=== PATIENT | male | born 1995 | race African-American/Black ===

== ENCOUNTER 2021-03-20 11:52 | Emergency (ER) | payer OTHER, SELFPAY ==
[2021-03-20 11:57] VITALS: BP 119/71; PULSE 78; RESP 18; TEMP 36.3; O2SAT 100
[2021-03-20] MEDS: ONDANSETRON HCL ODT 4 MG TABLET PO (12:44)
[2021-03-20] MEDS: metroNIDAZOLE 250 MG TABLET 2000 MG PO (12:44)
--- NOTE | 2021-03-20 12:46 | ED.GENADULT ---
HPI - General Adult General Chief complaint: Urogenital-Male Stated complaint: STI check Time Seen by Provider: 03/20/21 12:10 Source: patient and RN notes reviewed Mode of arrival: ambulatory Limitations: no limitations History of Present Illness HPI narrative: Patient is a 25-year-old male who presents noting that he would like to be tested and treated for STDs stating that his girlfriend recently was found to have trichomoniasis patient himself has no symptoms and presents asymptomatic denies any other illnesses or concerns Related Data Home Medications Medication Instructions Recorded Confirmed No Home Medications 03/20/21 03/20/21 Allergies Allergy/AdvReac Type Severity Reaction Status Date / Time No Known Allergies Allergy Verified 03/20/21 12:14 Review of Systems Review of Systems: All systems reviewed & are unremarkable except as noted in HPI and below Exam Narrative: GENERAL: Well-appearing, well-nourished, and in no acute distress. HEAD: Normocephalic, atraumatic. EYES: PERRLA and EOMI. ENT: Nares clear, no rhinorrhea or epistaxis. Mucous membranes moist. CHEST: Clear to auscultation. No respiratory distress. No wheezes rales or rhonchi HEART: Regular rate and rhythm. No murmur heard. EXTREMITIES: Normal range of motion. No edema. SKIN: Warm, dry, no rash. NEURO: No focal deficits. Alert and oriented x3. PSYCH: Normal mood and affect. Course Course Emergency Course: Patient treated for trichomoniasis in the emergency department will follow up with primary care for further results and testing and felt appropriate for outpatient reevaluation ABCs and vital signs intact and stable Vital Signs Vital signs: Vital Signs Temperature 97.3 F L 03/20/21 11:57 Pulse Rate 78 03/20/21 11:57 Respiratory Rate 18 03/20/21 11:57 Blood Pressure 119/71 03/20/21 11:57 Pulse Oximetry 100 03/20/21 11:57 Temperature 97.3 F L 03/20/21 11:57 Pulse Rate 78 03/20/21 11:57 Respiratory Rate 18 03/20/21 11:57 Blood Pressure 119/71 03/20/21 11:57 Pulse Oximetry 100 03/20/21 11:57 Medical Decision Making [facility] Narrative Medical decision making narrative: Patient treated for trichomoniasis will be discharged with outpatient follow-up for further testing and culture result Patient provided with reasons to return Vital Signs Vital Signs: Vital Signs Temperature 97.3 F L 03/20/21 11:57 Pulse Rate 78 03/20/21 11:57 Respiratory Rate 18 03/20/21 11:57 Blood Pressure 119/71 03/20/21 11:57 Pulse Oximetry 100 03/20/21 11:57 Temperature 97.3 F L 03/20/21 11:57 Pulse Rate 78 03/20/21 11:57 Respiratory Rate 18 03/20/21 11:57 Blood Pressure 119/71 03/20/21 11:57 Pulse Oximetry 100 03/20/21 11:57 Discharge Plan Discharge Clinical Impression: Urethritis Patient Disposition: Home, Self-Care Condition: Stable Instructions: Antibiotic Form, Trichomoniasis (ED) Additional Instructions: Follow up with primary care in the next 2-3 days for re-evaluation and culture result. Increase fluid intake. Tylenol and Motrin for pain and or fever if needed. Follow up with your doctor for further care. Call your doctor or return to the emergency department if needed for worsening symptoms or problems, especially if you have persistent high fever, vomiting, inability to urinate, weakness, blood in your urine, chnage in mental status, or other serious concerns. Prescriptions: No Action No Home Medications RF: 0 Follow-up/Referrals: PHYSICIAN,ROBOTICS TESTING TECHNICIAN [Primary Care Provider] - Holger Jimenez, DO [Physician] -
[2021-03-20 13:10] VITALS: BP 118/72; PULSE 78; RESP 16; O2SAT 100
== END 2021-03-20 13:10 | disposition home or self-care (01) ==
PROVIDERS: Emergency Medicine Emergency Medical Services; Emergency Provider Emergency Medicine
DX: N34.2 Other urethritis (principal)
CPT/HCPCS: 87491; 87591; 99283; A9270

== ENCOUNTER 2021-04-17 15:53 | Emergency (ER) | payer OTHER, SELFPAY | END 2021-04-18 04:43 | disposition left against medical advice (07) | PROVIDERS: PCP Internal Medicine | DX: Z53.21 Procedure and treatment not carried out due to patient leaving prior to being seen by health care provider (principal) | CPT/HCPCS: 99199 ==

== ENCOUNTER 2021-09-20 10:17 | Emergency (ER) | payer OTHER, SELFPAY ==
[2021-09-20 10:25] VITALS: BP 113/63; PULSE 67; RESP 18; TEMP 36.4; O2SAT 100
--- NOTE | 2021-09-20 10:41 | ED.EYEPROB ---
HPI - Eye Problem General Chief complaint: Eye Problems Stated complaint: Eye Pain Time Seen by Provider: 09/20/21 10:41 Source: patient Mode of arrival: ambulatory Limitations: no limitations History of Present Illness HPI Narrative: Carla Haney is a 25 yo male with no PMH [facility] with a left upper lid swelling since this morning. No known injury; does not wear contacts, denies any visual change Related Data Allergies Allergy/AdvReac Type Severity Reaction Status Date / Time No Known Allergies Allergy Verified 03/20/21 12:14 Review of Systems Review of Systems: CONSTITUTIONAL: Denies fever, chills, sweats. EYES: Denies visual changes, redness, discharge. Left upper lid swelling ENT: Denies rhinorrhea, congestion, sore throat, otalgia. CARDIOVASCULAR: Denies chest pain, palpitations, edema. RESPIRATORY: Denies dyspnea, wheezing, cough GASTROINTESTINAL: Denies abdominal pain, nausea, vomiting, diarrhea. GENITOURINARY: Denies dysuria, hematuria, abnormal discharge SKIN: Denies rash or itching. NEUROLOGIC: Denies numbness, or focal weakness. PSYCHIATRIC: Denies anxiety or depression. [facility], [facility] Social History Social History (Updated 09/20/21 @ 10:42 by Lorenza Gracia CNP) Smoking status: Never smoker Alcohol intake: current Comments At time of signature, I agree with nursing past medical, surgical, social and family history. There is no relevant family history pertinent to the presenting complaint. Exam Narrative: GENERAL: This is a well-nourished, well-developed patient, in mild distress. HEAD: normocephalic, atraumatic. EYES: PERRL. Sclera clear/white. Vision is grossly intact. Left upper eyelid swelling mild tenderness; denies any visual change EARS: External ears normal, Hearing grossly intact. NOSE: External nose normal without nasal discharge, nares without redness, no rhinorrhea. THROAT: Mucous membranes moist, NECK: Neck supple, CARDIOVASCULAR: Regular rate and rhythm without murmurs, gallops, or rubs. RESPIRATORY: Clear to auscultation. Breath sounds equal bilaterally. No wheezes, rales, or rhonchi. GASTROINTESTINAL: Not done, SKIN: warm, intact with no suspicious lesions or rash, good texture and turgor. NEURO: awake, alert, and oriented to person, place and time. There were no obvious focal neurologic abnormalities. Steady gait EXTREMITIES: Normal range of motion. BACK: Nontender without deformity Course Course Emergency Course: Patient comes with left upper eyelid swelling with no visual changes and no injection of the conjunctiva Started on tobramycin drops Discussed using warm soaks and not manually manipulating eyelid Level of Care: Express Care Visit Vital Signs Vital signs: Vital Signs Temperature 97.6 F 09/20/21 10:25 Pulse Rate 67 09/20/21 10:25 Respiratory Rate 18 09/20/21 10:25 Blood Pressure 113/63 09/20/21 10:25 Pulse Oximetry 100 09/20/21 10:25 Temperature 97.6 F 09/20/21 10:25 Pulse Rate 67 09/20/21 10:25 Respiratory Rate 18 09/20/21 10:25 Blood Pressure 113/63 09/20/21 10:25 Pulse Oximetry 100 09/20/21 10:25 MDM - Eye Problem Differential Diagnosis Differential diagnosis: Likely corneal abrasion, conjunctivitis, corneal ulcer and other (Kiki) Critical Care Time Critical Care Time Critical Care Time: No Discharge Plan Discharge Clinical Impression: Hordeolum Qualifiers: Hordeolum type: externum Laterality: left Eyelid: upper Qualified Code(s): H00.014 - Hordeolum externum left upper eyelid Patient Disposition: Home, Self-Care Condition: Stable Instructions: Kiki (ED) Additional Instructions: Use warm soaks 3 times a day to left eye; do not squeeze or try to open blood drain on its own Prescriptions: New tobramycin 0.3 % drops 2 drp LEFT EYE Q4H Qty: 5 RF: 0 Follow-up/Referrals: PHYSICIAN,TRAVEL MANAGER [Primary Care Provider] - Stand Alone Forms: Work/School Release IP Time of Disposi
== END 2021-09-20 11:01 | disposition home or self-care (01) ==
PROVIDERS: Emergency Provider Nurse Practitioner
DX: H00.014 Hordeolum externum left upper eyelid (principal)
CPT/HCPCS: 99213; G0463